=== PATIENT | male | born 1970 | race African-American/Black ===

== ENCOUNTER 2016-11-06 19:21 | Emergency (ER) | payer SELFPAY ==
[~2016-11-06] VITALS: Ht 175.3 cm; Wt 90.7 kg
[2016-11-06] MEDS ORDERED: IBUP200T77 PO (19:36)
--- NOTE | 2016-11-06 19:36 | PHYS DOC ---
Past Medical History Past Medical History: Hypertension Additional Past Medical Histor: Gout Past Surgical History: No Surgical History Alcohol Use: Heavy Drug Use: None Adult General Chief Complaint Chief Complaint: FINGER INJURY HPI HPI Patient is a 45 year old male who presents with right middle finger pain and swelling at his PIP that started approx 5 days ago. Has a history of gout; usually in his great toe. No injury known. Denies f/c, numbness, tingling, weakness. States he has been using ice and started ibuprofen today. He states his symptoms are improving, but he was told by family to come for evaluation. States he is not on any preventative gout medications. He also notes chronic uncontrolled HTN and states he is not here for evaluation of that. Review of Systems Review of Systems Constitutional: Denies fever or chills [] Eyes: Denies change in visual acuity, redness, or eye pain [] HENT: Denies nasal congestion or sore throat [] Respiratory: Denies cough or shortness of breath [] Cardiovascular: No additional information not addressed in HPI [] GI: Denies abdominal pain, nausea, vomiting, bloody stools or diarrhea [] : Denies dysuria or hematuria [] Musculoskeletal: Denies back pain [] Integument: Denies rash or skin lesions [] Neurologic: Denies headache, focal weakness or sensory changes [] Endocrine: Denies polyuria or polydipsia [] Allergies Allergies Allergies Coded Allergies Type Severity Reaction Last Updated Verified No Known Drug Allergies 03/17/15 No Physical Exam Physical Exam Constitutional: Well developed, well nourished, no acute distress, non-toxic appearance. [] HENT: Normocephalic, atraumatic, bilateral external ears normal, oropharynx moist, nose normal. [] Eyes: PERRLA, EOMI. [] Neck: Normal range of motion, supple. [] Cardiovascular:Heart rate regular rhythm [] Lungs & Thorax: Bilateral breath sounds clear to auscultation [] Abdomen: Bowel sounds normal, soft, no tenderness. [] Skin: Warm, dry, no erythema, no rash. [] Back: Normal ROM. [] Extremities: RUE with swelling and mild rubor to 2nd PIP with local mild tenderness; skin intact; Flexion at middle finger PIP reduced due to swelling but can range it; Can make fist/ok sign/thumb up/finger cross and spread; Can flex/ex wrist; Good radial pulse and brisk cap refill equal bilaterally; sensation intact to light touch m/u/r nerves; No extensor lag or rotational deformity Neurologic: Alert and oriented X 3, normal motor function, normal sensory function, no focal deficits noted. [] Psychologic: Affect normal, judgement normal, mood normal. [] Current Patient Data Vital Signs Vital Signs Date Time Temp Pulse Resp B/P (MAP) Pulse Ox O2 Delivery O2 Flow Rate FiO2 11/06/16 19:21 97.6 99 18 190/120 (143) 98 Room Air 97.6 Course & Med Decision Making Course & Med Decision Making Discussed supportive care for likely gouty flair. Encouraged etoh cessation and diet modification to help decrease gout flairs. Also encouraged follow up with his PCP for uncontrolled chronic comorbidities. Return precautions given. He understands and agrees with plan. Dragon Disclaimer Dragon Disclaimer This electronic medical record was generated, in whole or in part, using a voice recognition dictation system. Departure Departure Impression: Primary Impression: Finger pain, right Disposition: 01 HOME, SELF-CARE Condition: STABLE Referrals: NO PCP (PCP) Patient Instructions: Gout, [id number] Additional Instructions: Take ibuprofen 400mg 3 times per day to help with pain and swelling. Follow up with your primary care doctor. Return for any concerns. Scripts Ibuprofen (IBUPROFEN) 200 Mg Tablet 200 MG PO PRN Q6HRS Y for INFLAMMATION, #60 TAB Prov: Martha LOWRY MD 11/06/16 Martha LOWRY MD November 06, 2016 19:36
[2016-11-06 19:50] VITALS: BP 176/106
== END 2016-11-06 19:56 | disposition home or self-care (01) ==
LOC: ER 19:21
DX: M79.644 Pain in right finger(s) (principal); M79.89 Other specified soft tissue disorders; M10.9 Gout, unspecified; I10 Essential (primary) hypertension
CPT/HCPCS: 99283

== ENCOUNTER 2021-06-28 23:53 | Emergency (ER) | payer SELFPAY ==
[~2021-06-28] VITALS: Ht 177.8 cm; Wt 104.5 kg
[~2021-06-28 23:53] MED LIST: IBUP200T77 PO
--- NOTE | 2021-06-29 00:20 | PHYS DOC ---
Past Medical History Past Medical History: Hypertension Additional Past Medical Histor: Gout (BRAD PINZON APRN) Past Surgical History: No Surgical History (BRAD PINZON APRN) Smoking Status: Current Every Day Smoker Alcohol Use: Heavy Drug Use: None (BRAD PINZON APRN) General Adult EDM: Chief Complaint: ALCOHOL INTOXICATION HPI: HPI: Patient is a 50-year-old male who presents to the emergency department today via EMS after being found in a parking lot intoxicated. EMS reports that they tried to get patient to ambulate but he was unable to ambulate with assistance and therefore was transported to the emergency department for evaluation. Patient is alert and oriented x4. He states that he drank "a lot of alcohol". Patient reports that he drank beer but cannot estimate how much. Patient is tearful while in the emergency department but has no complaints. He is emotionally upset over his family life. He states that he does not talk to his children and struggles financially. Patient states that he has no desire for detox from alcohol use. (BRAD PINZON APRN) Review of Systems: Review of Systems: 14 body systems of the review of systems have been reviewed. See HPI for pertinent positive and negative responses, otherwise all other systems are negative, nonpertinent or noncontributory (BRAD PINZON APRN) Heart Score: C/O Chest Pain: No Risk Factors: Risk Factors: DM, Current or recent (<one month) smoker, HTN, HLP, family history of CAD, obesity. Risk Scores: Score 0 - 3: 2.5% MACE over next 6 weeks - Discharge Home Score 4 - 6: 20.3% MACE over next 6 weeks - Admit for Clinical Observation Score 7 - 10: 72.7% MACE over next 6 weeks - Early Invasive Strategies (BRAD PINZON APRN) Allergies: Allergies: Allergies Coded Allergies Type Severity Reaction Last Updated Verified No Known Drug Allergies 03/17/15 No (BRAD PINZON APRN) Physical Exam: PE: Constitutional: Well developed, well nourished, no acute distress, non-toxic appearance. [] HENT: Normocephalic, atraumatic, bilateral external ears normal, oropharynx moist, no oral exudates, nose normal. [] Eyes: PERRL, EOMI, conjunctiva normal, no discharge. [] Neck: Normal range of motion, no stridor Cardiovascular:Heart rate regular rhythm, no murmur [] Lungs & Thorax: Bilateral breath sounds clear to auscultation [] Abdomen: Bowel sounds normal, soft, no tenderness, no masses, no pulsatile masses. [] Skin: Warm, dry, no erythema, no rash. [] Back: Normal range of motion Extremities: No tenderness, no cyanosis, no clubbing, ROM intact, no edema. [] Neurologic: Alert and oriented X 3, normal motor function, normal sensory function, no focal deficits noted. [] Psychologic: Affect normal, judgement normal, mood normal. [] (BRAD PINZON APRN) EKG: EKG: [] (BRAD PINZON APRN) Radiology/Procedures: Radiology/Procedures: [] (BRAD PINZON APRN) Course & Med Decision Making: Course & Med Decision Making Pertinent Labs and Imaging studies reviewed. (See chart for details) [] Patient presents to the emergency department for alcohol intoxication. Patient cannot quantify how much alcohol he did have to drink but does report drinking "a lot of beer". Patient has no complaints at this time other than being emotionally upset. He denies any chest pain or shortness of breath. Patient's blood pressure is mildly elevated in the emergency department but he has no chest pain or shortness of breath. He states that he has hypertension but has not taken his medications because at his cousin's house. Patient states that he lives by himself, he is able to tell me his address. He reports that there is no one that he can call to take him home. Patient was fed in the ER. Patient was ambulatory with little assistance. Patient states that he "wants rehab". Patient states that he "needs to go to rehab". He admits being an alcoholic. He reports that he has gone to rehab before and has detoxed previously, he denies any seizure hx with withdrawal. Lab work ordered for medical clearance for rehab discharge. Patient to be evaluated by psychiatric assessment team. 0121. I discussed patients case with supervising physician and she will assume patient care at this time due to shift change. (BRAD PINZON APRN) Course & Med Decision Making This patient was initially seen by the nurse practitioner. I assumed care at 0100. The patient is significantly intoxicated with alcohol, he denies any physical pain or discomfort. He requested services for detox. The PAT team came to see him, but he was too intoxicated can to converse meaningfully. He will be reassessed later this morning to see if he still desires to have detox resources and services or not. The PAT team will reevaluate him at the time he is more clinically sober, alert and awake and conversant. He has no complaints, he has been resting comfortably, manifested evidence of distress since my assumption of care. Dr. Guzman will be taking over the patient as of 0600. (SUMIT FERNANDO DO) Course & Med Decision Making Patient is a a 50-year-old male who present to ER for evaluation of alcohol intoxication. Patient alcohol level was elevated. Patient was observed in ER for 9 hours and 30 minutes. Patient was awake alert this time, denies suicidal ideation denies homicidal ideation. Patient interested in detox program so he can go to. Patient is medically clear. Patient was given [facility] alcohol drug assessment center information so he can follow-up. Patient said when he woke up this morning the corner of the left lower lip swollen, he is not sure what happened. I examined the patient, he has little swelling of the left lower lip, no tongue swelling, no trouble breathing, no trouble swallowing. Patient was given Benadryl and steroid with Pepcid in the ER for possible allergic reaction. Patient ate in no acute distress. Patient will be discharged from the ER (MALIA GUZMAN DO) Dragon Disclaimer: Dragon Disclaimer: This electronic medical record was generated, in whole or in part, using a voice recognition dictation system. (BRAD PINZON APRN) Departure Departure Impression: Primary Impression: Alcohol intoxication Qualified Codes: F10.920 - Alcohol use, unspecified with intoxication, uncomplicated Disposition: HOME / SELF CARE / HOMELESS Condition: GOOD Referrals: NO PCP (PCP) Patient Instructions: Alcohol Problems Additional Instructions: Please follow up with [facility] for alcohol detox treatment if you need. [facility] or 7 [phone] [address] [place] [address]. [email or web address] BRAD PINZON APRN Jun 29, 2021 00:20 SUMIT FERNANDO DO Jun 29, 2021 08:06 MALIA GUZMAN DO Jun 29, 2021 09:32
[2021-06-29] MEDS: MULTIVIT INFUSN,ADULT 4,VIT K 10 ML, THIAMINE INJ 100 MG, FOLIC ACID INJ 1 MG in IV NOR... IV ONE (01:40)
[2021-06-29 01:43] LABS: BASO # 0.1 x10^3/uL (0.0-0.2); BASO % 1 % (0-3); EOS # 0.2 x10^3/uL (0.0-0.7); EOS % 3 % (0-3); HEMATOCRIT 35.6 % (39.0-53.0); HEMOGLOBIN 11.9 g/dL (13.0-17.5); LYMPH # 2.5 x10^3/uL (1.0-4.8); LYMPH % 42 % (24-48); MEAN CORPUSCULAR HEMOGLOBIN 32 pg (25-35); MEAN CORPUSCULAR HGB CONC 34 g/dL (31-37); MEAN CORPUSCULAR VOLUME 94 fL (79-100); MONO # 0.4 x10^3/uL (0.0-1.1); MONO % 7 % (0-9); NEUT # 2.8 x10^3/uL (1.8-7.7); NEUT % 48 % (31-73); PLATELET COUNT 339 x10^3/uL (140-400); RED CELL DISTRIBUTION WIDTH 20.4 % (11.5-14.5); WHITE BLOOD COUNT 5.9 x10^3/uL (4.0-11.0)
[2021-06-29 01:44] LABS: BILIRUBIN,URINE NEGATIVE (NEG); CLARITY,URINE CLOUDY; COLOR,URINE YELLOW; NITRITE,URINE NEGATIVE (NEG); PH,URINE 5.5 (<5.0-8.0); PROTEIN,URINE 100 mg/dL (NEG-TRACE); UROBILINOGEN,URINE 0.2 mg/dL (0.2 mg/dL)
[2021-06-29 01:51] LABS: BARBITURATES NEG (NEG); BENZODIAZEPINES NEG (NEG); CANNABINOIDS NEG (NEG); COCAINE NEG (NEG); METHADONE NEG (NEG); OPIATES NEG (NEG); PHENCYCLIDINE NEG (NEG)
[2021-06-29 01:52] LABS: AMPHETAMINE/METHAMPHETAMINE NEG (NEG)
[2021-06-29 01:55] LABS: BACTERIA,URINE 0 /HPF (0-FEW); HYALINE CASTS, URINE OCCASIONAL /HPF; RBC,URINE 0 /HPF (0-2); WBC,URINE 0 /HPF (0-4)
[2021-06-29 01:59] LABS: CALCIUM 8.3 mg/dL (8.5-10.1); CREATININE 1.8 mg/dL (0.7-1.3); GFR 48.4; POTASSIUM 4.9 mmol/L (3.5-5.1)
[2021-06-29 02:05] LABS: ALBUMIN 3.7 g/dL (3.4-5.0); ALBUMIN/GLOBULIN RATIO 0.8 (1.0-1.7); TOTAL BILIRUBIN 0.3 mg/dL (0.2-1.0); TOTAL PROTEIN 8.4 g/dL (6.4-8.2)
[2021-06-29 04:29] LABS: ANISOCYTOSIS MOD; PLT ESTIMATE ADEQUATE (ADEQUATE); POLYCHROMASIA SLIGHT
[2021-06-29] MEDS: diphenhydrAMINE 50 MG/ML VIAL IVP ONE (08:59)
[2021-06-29] MEDS: methylPREDNISolone SOD SUCC PF 125 MG/2 ML VIAL. IV ONE (09:01)
[2021-06-29 10:03] VITALS: BP 168/90
== END 2021-06-29 10:12 | disposition home or self-care (01) ==
LOC: ER 23:53
DX: F10.229 Alcohol dependence with intoxication, unspecified (principal); I10 Essential (primary) hypertension; F17.200 Nicotine dependence, unspecified, uncomplicated; Y90.8 Blood alcohol level of 240 mg/100 ml or more
CPT/HCPCS: 36415; 80053; 80307; 81001; 82962; 85025; 96365; 96366; 96375; 99285; G0480; J1200; J2930; J3411; J3490; J7030